=== PATIENT | male | born 2000 | race American Indian/Alaskan Native ===

== ENCOUNTER 2019-03-08 21:30 | Emergency (ER) | payer OTHER, SELFPAY ==
[2019-03-08 21:36] VITALS: BP 138/76; PULSE 70; RESP 13; TEMP 36.8; O2SAT 100
--- NOTE | 2019-03-08 21:39 | DI.RAD.S_ITS ---
PROCEDURE: XR CHEST 1V INDICATIONS: chest pain TECHNIQUE: One view of the chest was acquired. COMPARISON: None. FINDINGS: Surgical changes and devices: None. Lungs and pleura: Lungs are clear. No pleural effusions or pneumothorax. Mediastinum: Mediastinal contours appear normal. Heart size is normal. Bones and chest wall: No suspicious bony lesions. Overlying soft tissues appear unremarkable. IMPRESSION: No acute cardiopulmonary disease. Dictated by: Andrey Osborn M.D. on 03/08/2019 at 21:57 Approved by: Andrey Osborn M.D. on 03/08/2019 at 21:57
[2019-03-08 21:51] LABS: Add Manual Diff / Slide Review NO; Basophils Absolute Auto 100 /uL (0-100); Basophils Percent Auto 0.7 % (0-2); Eosinophils Absolute Auto 100 /uL (0-450); Eosinophils Percent Auto 1.9 % (2-4); Hematocrit 46.7 % (41-53); Hemoglobin 15.8 g/dL (13.5-17.5); Lymphocytes Absolute Auto 2500 /uL (1100-4500); Lymphocytes Percent Auto 33.3 % (25-40); Mean Corpuscular HGB Conc 33.8 % (30-36); Mean Corpuscular Hemoglobin 28.1 PG (26-34); Mean Corpuscular Volume 83.4 fL (80-100); Monocytes Absolute Auto 600 /uL (0-900); Monocytes Percent Auto 7.7 % (3-14); Neutrophils Absolute Auto 4300 /uL (1500-7000); Neutrophils Percent Auto 56.4 % (50-75); Platelet Count 202 X10^3/uL (150-400); Red Cell Distribution Width 13.4 % (11.6-14.8); White Blood Cell Count 7.6 X10^3/uL (4.5-11.0)
--- NOTE | 2019-03-08 21:51 | ED.CHESTPAIN ---
HPI - Chest Pain General Chief Complaint: Chest Pain Stated Complaint: N/V chest pain Time Seen by Provider: 03/08/19 21:32 Source: patient and EMS Mode of arrival: EMS Limitations: no limitations History of Present Illness HPI narrative: 18-year-old male smoker with history of anxiety presents by EMS for evaluation of sudden-onset nausea and vomiting closely followed by some epigastric pain. Patient relatively asymptomatic by his arrival. Not dizzy nor weak or lightheaded. He has no fever chills and denies abdominal pain. He denies exposure to ill persons, bad food or recent antibiotics complaint: chest pain Onset (ago): hour(s) Duration: now resolved Onset: after eating Pain location: epigastric Severity: mild Pain radiation: none Relieving factors: nothing Exacerbating factors: nothing Associated symptoms: nausea and vomiting Treatments prior to arrival chest pain: none Related Data Previous Rx's Medication Instructions Recorded ondansetron 4 mg PO TID-QID PRN #10 tab 03/08/19 Allergies Allergy/AdvReac Type Severity Reaction Status Date / Time No Known Allergies Allergy Uncoded 11/12/17 11:45 Review of Systems Constitutional Denies chills, Denies fever(s), Denies lethargy and Denies weakness Eyes Denies change in vision, Denies eye discharge, Denies irritation and Denies loss of vision ENT Ears, Nose, Mouth, and Throat: Denies change in voice, Denies neck pain and Denies sore throat Cardiovascular Reports chest pain, Denies irregular heart rhythm, Denies lightheadedness, Denies palpitations, Denies dyspnea, Denies dyspnea on exertion and Denies orthopnea Respiratory Denies cough, Denies dyspnea, Denies dyspnea on exertion and Denies wheezing Gastrointestinal Gastrointestinal: Denies abdominal pain, Denies change in bowel habits, Denies diarrhea, Reports nausea and Reports vomiting Genitourinary Denies hematuria, Denies flank pain, Denies urinary incontinence and Denies urinary urgency Musculoskeletal Denies neck pain Integumentary/Breasts Denies pruritus, Denies erythema, Denies rash and Denies wounds Neurologic Denies confusion, Denies loss of vision and Denies weakness Psychiatric Denies anxiety, Denies confusion, Denies depression, Denies homicidal ideation and Denies suicidal ideation Endocrine Denies palpitations Hematologic/Lymphatic Denies easy bruising Allergic/Immunologic Denies wheezing PFSH Social History Smoking Status: Current every day smoker Social History Smoking Status: Current every day smoker Exam Narrative Exam Narrative: GENERAL: This is a well-nourished, well-developed patient, in mild distress. HEAD: Atraumatic. Normocephalic. No temporal or scalp tenderness. EYES: Pupils equal round and reactive. Extraocular motions intact. No scleral icterus. No injection or drainage. ENT: Nose without bleeding, purulent drainage or septal hematoma. Throat without erythema, tonsillar hypertrophy or exudate. Uvula midline. Airway patent. NECK: Trachea midline. No JVD or lymphadenopathy. Supple, nontender, no meningeal signs. CARDIOVASCULAR: Regular rate and rhythm without murmurs, gallops, or rubs. RESPIRATORY: Clear to auscultation. Breath sounds equal bilaterally. No wheezes, rales, or rhonchi. GASTROINTESTINAL: Abdomen soft, non-tender, nondistended. No hepato-splenomegaly, or palpable masses. No guarding. EXTREMITIES: No clubbing, cyanosis, or edema. No joint tenderness, effusion, or edema noted. BACK: Nontender without deformity or crepitance. No flank tenderness. NEURO: AOx3. SKIN: No rash or erythema. Initial Vital Signs Initial Vital Signs: Vital Signs Temperature 98.3 F 03/08/19 21:36 Pulse Rate 70 03/08/19 21:36 Respiratory Rate 13 03/08/19 21:36 Blood Pressure 138/76 03/08/19 21:36 Pulse Oximetry 100 03/08/19 21:36 Scores HEART Score Heart Score history: Slightly Suspicious Heart Score EKG: Normal Heart Score Age: < 45 years old Heart Score risk factors: No known risk factors Heart Score troponin: < or = to normal limit Heart Score Total: 0 Course Orders Ordered: ED Orders 03/08/19 21:39 XR chest 1V Stat EKG-12 Lead Stat 03/08/19 21:45 Complete Blood Count AUTO DIFF Stat Comprehensive Metabolic Panel Stat Lipase Stat Troponin & CK Cardiac Panel Stat Discontinued Medications Sodium Chloride (Normal Saline 0.9%) 1,000 mls @ 150 mls/hr IV CONT FARZANA Last Infusion: 03/08/19 23:05 Dose: 0 mls/hr Admin: 03/08/19 22:17 Dose: 150 mls/hr Ondansetron HCl (Zofran) 4 mg IV NOW ONE Stop: 03/08/19 21:40 Last Admin: 03/08/19 22:17 Dose: 4 mg Ondansetron HCl (Zofran Odt Prepack) 1 bottle MISC SEEINSTR ONE Stop: 03/08/19 23:32 Last Admin: 03/08/19 23:45 Dose: 1 bottle Pantoprazole Sodium (Protonix) 40 mg IV NOW ONE Stop: 03/08/19 21:40 Last Admin: 03/08/19 22:16 Dose: 40 mg Vital Signs - 8 hr 03/08/19 23:00 03/08/19 23:47 Pulse Rate 63 63 Respiratory Rate 20 20 Blood Pressure 126/66 Blood Pressure [Left Arm] 126/66 Pulse Oximetry 100 100 MDM - Chest Pain Medical Records Data Attestation: I reviewed the patient's medical records. Lab Data Attestation: I reviewed the patient's lab results. Result diagrams: 03/08/19 21:45 03/08/19 21:45 Lab Results 03/08/19 03/08/19 Range/Units 21:45 21:45 WBC 7.6 (4.5-11.0) X10^3/uL RBC 5.60 (4.5-5.9) X10^6/uL Hgb 15.8 (13.5-17.5) g/dL Hct 46.7 (41-53) % MCV 83.4 (80-100) fL MCH 28.1 (26-34) PG MCHC 33.8 (30-36) % RDW 13.4 (11.6-14.8) % Plt Count 202 (150-400) X10^3/uL Neut % (Auto) 56.4 (50-75) % Lymph % (Auto) 33.3 (25-40) % [place] % (Auto) 7.7 (3-14) % Eos % (Auto) 1.9 L (2-4) % Baso % (Auto) 0.7 (0-2) % Neut # (Auto) 4300 (5200-4741) /uL Lymph # (Auto) 2500 (8149-0736) /uL [place] # (Auto) 600 (0-900) /uL Eos # (Auto) 100 (0-450) /uL Baso # (Auto) 100 (0-100) /uL Sodium 140 (137-145) mmol/L Potassium 3.9 (3.4-5.1) mmol/L Chloride 104 (98-107) mmol/L Carbon Dioxide 29 (22-32) mmol/L BUN 14 (9-20) mg/dL Creatinine 0.90 (0.66-1.25) mg/dL Estimated GFR > 60.0 (>60) mL/min BUN/Creatinine Ratio 15.6 (6-22) Glucose 86 (70-100) mg/dL Calcium 9.1 (8.4-10.2) mg/dL Total Bilirubin 0.6 (0.2-1.3) mg/dL AST 27 (17-59) IU/L ALT 27 (21-72) IU/L Alkaline Phosphatase 68 (38-126) U/L Total Creatine Kinase 227 H (55-170) U/L CK-MB (CK-2) 1.43 (<2.37) ng/mL CK-MB (CK-2) Rel Index 0.6 L (1.5-5.0) % Troponin I < 0.012 (0.01-0.034) ng/mL Total Protein 7.2 (6.3-8.2) g/dL Albumin 4.4 (3.5-5.0) g/dL Globulin 2.8 (1.7-4.1) g/dL Albumin/Globulin Ratio 1.6 (1.0-2.8) Lipase 61 (23-300) U/L Imaging Data Chest x-ray: Radiologist's impression: [address] [address] XRay Report Signed Patient: Wilfredo Horvath [facility]#: [id number] : 2000Acct:[id number] Age/Sex: 18 / MDate of Service: 03/08/19 Loc: ED Accession Number: [id number] Procedure: XR chest 1V Ordering Provider: Casey Mcgrath D.O. PROCEDURE: XR CHEST 1V INDICATIONS: chest pain TECHNIQUE: One view of the chest was acquired. COMPARISON: None. FINDINGS: Surgical changes and devices: None. Lungs and pleura: Lungs are clear. No pleural effusions or pneumothorax. Mediastinum: Mediastinal contours appear normal. Heart size is normal. Bones and chest wall: No suspicious bony lesions. Overlying soft tissues appear unremarkable. IMPRESSION: No acute cardiopulmonary disease. Dictated by: Andrey Osborn M.D. on 03/08/2019 at 21:57 Approved by: Andrey Osborn M.D. on 03/08/2019 at 21:57 [facility] Narrative Medical decision making narrative: Multiple etiologies for patient's symptoms considered including: [esophageal spasm vs. cardiac ischemia vs. ] Patient's symptoms improved or duration of stay with above-stated therapies. Findings and discharge diagnosis discussed with patient/family followed by verbalization of understanding Return precautions discussed with patient/family whom verbalize understanding. Discharge Plan Departure Patient Disposition: Home Clinical Impression: Atypical chest pain Vomiting Qualifiers: Vomiting type: unspecified Vomiting Intractability: non-intractable Nausea presence: with nausea Qualified Code(s): R11.2 - Nausea with vomiting, unspecified Discharge Date/Time: 03/08/19 23:46 Interventions: ED Discharge Assessment Last Done: 03/08/19 23:47 Instructions: DI for Atypical Chest Pain Activity Restrictions/Additional Instructions: *You have been diagnosed nausea and vomiting with atypical chest pain and anxiety *What to do: *Take medications as directed *Follow up with your primary care provider in 2-3 days, call for an appointment. Let them know you were seen in the Emergency Department and that we ask that you be seen in follow up *Return to ER if you should have any new, worsening or concerning symptoms Prescriptions: New ondansetron 4 mg tablet,disintegrating 4 mg PO TID-QID PRN (Reason: nausea and vomiting) Qty: 10 RF: 0
[2019-03-08 21:55] VITALS: BP 138/76; PULSE 60; RESP 24; O2SAT 100
[2019-03-08 22:02] LABS: Alanine Aminotransferase 27 IU/L (21-72); Albumin 4.4 g/dL (3.5-5.0); Albumin Globulin Ratio 1.6 (1.0-2.8); Alkaline Phosphatase 68 U/L (38-126); Aspartate Aminotransferase 27 IU/L (17-59); BUN Creatinine Ratio 15.6 (6-22); Bilirubin Total 0.6 mg/dL (0.2-1.3); Blood Urea Nitrogen 14 mg/dL (9-20); Calcium 9.1 mg/dL (8.4-10.2); Carbon Dioxide 29 mmol/L (22-32); Chloride 104 mmol/L (98-107); Creatine Kinase 227 U/L (55-170); Estimated Glomerular Filt Rate > 60.0 mL/min (>60); Globulin 2.8 g/dL (1.7-4.1); Glucose 86 mg/dL (70-100); HEMOLYSIS 18 (0-50); Lipase 61 U/L (23-300); Potassium 3.9 mmol/L (3.4-5.1); Sodium 140 mmol/L (137-145); Total Protein 7.2 g/dL (6.3-8.2)
[2019-03-08 22:03] VITALS: BP 128/62; PULSE 63; RESP 23; O2SAT 100
[2019-03-08 22:14] LABS: Troponin I < 0.012 ng/mL (0.01-0.034)
[2019-03-08] MEDS: PANTOPRAZOLE 40 MG VIAL IV (22:16)
[2019-03-08] MEDS: SODIUM CHLORIDE 0.9% 1,000 ML 150 ML IV (22:17)
[2019-03-08] MEDS: ONDANSETRON 4 MG/2 ML INJ IV (22:17)
[2019-03-08 22:18] LABS: CKMB % Relative Index 0.6 % (1.5-5.0); Creatine Kinase MB 1.43 ng/mL (<2.37)
[2019-03-08 23:00] VITALS: BP 126/66; PULSE 63; RESP 20; O2SAT 100
[2019-03-08] MEDS: ONDANSETRON 4 MG ODT PREPACK 1 BOTTLE MISC (23:45)
[2019-03-08 23:47] VITALS: BP 126/66; PULSE 63; RESP 20; O2SAT 100
--- NOTE | 2019-03-09 06:17 | ED_ITS ---
HPI - Chest Pain General Chief Complaint: Chest Pain Stated Complaint: N/V chest pain Time Seen by Provider: 03/08/19 21:32 Source: patient and EMS Mode of arrival: EMS Limitations: no limitations History of Present Illness HPI narrative: 18-year-old male smoker with history of anxiety presents by EMS for evaluation of sudden-onset nausea and vomiting closely followed by some epigastric pain. Patient relatively asymptomatic by his arrival. Not dizzy nor weak or lightheaded. He has no fever chills and denies abdominal pain. He denies exposure to ill persons, bad food or recent antibiotics complaint: chest pain Onset (ago): hour(s) Duration: now resolved Onset: after eating Pain location: epigastric Severity: mild Pain radiation: none Relieving factors: nothing Exacerbating factors: nothing Associated symptoms: nausea and vomiting Treatments prior to arrival chest pain: none Related Data Previous Rx's Medication Instructions Recorded ondansetron 4 mg PO TID-QID PRN #10 tab 03/08/19 Allergies Allergy/AdvReac Type Severity Reaction Status Date / Time No Known Allergies Allergy Uncoded 11/12/17 11:45 Review of Systems Constitutional Denies chills, Denies fever(s), Denies lethargy and Denies weakness Eyes Denies change in vision, Denies eye discharge, Denies irritation and Denies loss of vision ENT Ears, Nose, Mouth, and Throat: Denies change in voice, Denies neck pain and Denies sore throat Cardiovascular Reports chest pain, Denies irregular heart rhythm, Denies lightheadedness, Denies palpitations, Denies dyspnea, Denies dyspnea on exertion and Denies orthopnea Respiratory Denies cough, Denies dyspnea, Denies dyspnea on exertion and Denies wheezing Gastrointestinal Gastrointestinal: Denies abdominal pain, Denies change in bowel habits, Denies diarrhea, Reports nausea and Reports vomiting Genitourinary Denies hematuria, Denies flank pain, Denies urinary incontinence and Denies urinary urgency Musculoskeletal Denies neck pain Integumentary/Breasts Denies pruritus, Denies erythema, Denies rash and Denies wounds Neurologic Denies confusion, Denies loss of vision and Denies weakness Psychiatric Denies anxiety, Denies confusion, Denies depression, Denies homicidal ideation and Denies suicidal ideation Endocrine Denies palpitations Hematologic/Lymphatic Denies easy bruising Allergic/Immunologic Denies wheezing PFSH Social History Smoking Status: Current every day smoker Social History Smoking Status: Current every day smoker Exam Narrative Exam Narrative: GENERAL: This is a well-nourished, well-developed patient, in mild distress. HEAD: Atraumatic. Normocephalic. No temporal or scalp tenderness. EYES: Pupils equal round and reactive. Extraocular motions intact. No scleral icterus. No injection or drainage. ENT: Nose without bleeding, purulent drainage or septal hematoma. Throat without erythema, tonsillar hypertrophy or exudate. Uvula midline. Airway patent. NECK: Trachea midline. No JVD or lymphadenopathy. Supple, nontender, no meningeal signs. CARDIOVASCULAR: Regular rate and rhythm without murmurs, gallops, or rubs. RESPIRATORY: Clear to auscultation. Breath sounds equal bilaterally. No wheezes, rales, or rhonchi. GASTROINTESTINAL: Abdomen soft, non-tender, nondistended. No hepato- splenomegaly, or palpable masses. No guarding. EXTREMITIES: No clubbing, cyanosis, or edema. No joint tenderness, effusion, or edema noted. BACK: Nontender without deformity or crepitance. No flank tenderness. NEURO: AOx3. SKIN: No rash or erythema. Initial Vital Signs Initial Vital Signs: Vital Signs Temperature 98.3 F 03/08/19 21:36 Pulse Rate 70 03/08/19 21:36 Respiratory Rate 13 03/08/19 21:36 Blood Pressure 138/76 03/08/19 21:36 Pulse Oximetry 100 03/08/19 21:36 Scores HEART Score Heart Score history: Slightly Suspicious Heart Score EKG: Normal Heart Score Age: < 45 years old Heart Score risk factors: No known risk factors Heart Score troponin: < or = to normal limit Heart Score Total: 0 Course Orders Ordered: ED Orders 03/08/19 21:39 XR chest 1V Stat EKG-12 Lead Stat 03/08/19 21:45 Complete Blood Count AUTO DIFF Stat Comprehensive Metabolic Panel Stat Lipase Stat Troponin & CK Cardiac Panel Stat Discontinued Medications Sodium Chloride (Normal Saline 0.9%) 1,000 mls @ 150 mls/hr IV CONT FARZANA Last Infusion: 03/08/19 23:05 Dose: 0 mls/hr Admin: 03/08/19 22:17 Dose: 150 mls/hr Ondansetron HCl (Zofran) 4 mg IV NOW ONE Stop: 03/08/19 21:40 Last Admin: 03/08/19 22:17 Dose: 4 mg Ondansetron HCl (Zofran Odt Prepack) 1 bottle MISC SEEINSTR ONE Stop: 03/08/19 23:32 Last Admin: 03/08/19 23:45 Dose: 1 bottle Pantoprazole Sodium (Protonix) 40 mg IV NOW ONE Stop: 03/08/19 21:40 Last Admin: 03/08/19 22:16 Dose: 40 mg Vital Signs - 8 hr 03/08/19 23:00 03/08/19 23:47 Pulse Rate 63 63 Respiratory Rate 20 20 Blood Pressure 126/66 Blood Pressure [Left Arm] 126/66 Pulse Oximetry 100 100 MDM - Chest Pain Medical Records Data Attestation: I reviewed the patient's medical records. Lab Data Attestation: I reviewed the patient's lab results. Result diagrams: 03/08/19 21:45 03/08/19 21:45 Lab Results 03/08/19 03/08/19 Range/Units 21:45 21:45 WBC 7.6 (4.5-11.0) X10^3/uL RBC 5.60 (4.5-5.9) X10^6/uL Hgb 15.8 (13.5-17.5) g/dL Hct 46.7 (41-53) % MCV 83.4 (80-100) fL MCH 28.1 (26-34) PG MCHC 33.8 (30-36) % RDW 13.4 (11.6-14.8) % Plt Count 202 (150-400) X10^3/uL Neut % (Auto) 56.4 (50-75) % Lymph % (Auto) 33.3 (25-40) % [place] % (Auto) 7.7 (3-14) % Eos % (Auto) 1.9 L (2-4) % Baso % (Auto) 0.7 (0-2) % Neut # (Auto) 4300 (8664-0712) /uL Lymph # (Auto) 2500 (9547-6643) /uL [place] # (Auto) 600 (0-900) /uL Eos # (Auto) 100 (0-450) /uL Baso # (Auto) 100 (0-100) /uL Sodium 140 (137-145) mmol/L Potassium 3.9 (3.4-5.1) mmol/L Chloride 104 (98-107) mmol/L Carbon Dioxide 29 (22-32) mmol/L BUN 14 (9-20) mg/dL Creatinine 0.90 (0.66-1.25) mg/dL Estimated GFR > 60.0 (>60) mL/min BUN/Creatinine Ratio 15.6 (6-22) Glucose 86 (70-100) mg/dL Calcium 9.1 (8.4-10.2) mg/dL Total Bilirubin 0.6 (0.2-1.3) mg/dL AST 27 (17-59) IU/L ALT 27 (21-72) IU/L Alkaline Phosphatase 68 (38-126) U/L Total Creatine Kinase 227 H (55-170) U/L CK-MB (CK-2) 1.43 (<2.37) ng/mL CK-MB (CK-2) Rel Index 0.6 L (1.5-5.0) % Troponin I < 0.012 (0.01-0.034) ng/mL Total Protein 7.2 (6.3-8.2) g/dL Albumin 4.4 (3.5-5.0) g/dL Globulin 2.8 (1.7-4.1) g/dL Albumin/Globulin Ratio 1.6 (1.0-2.8) Lipase 61 (23-300) U/L Imaging Data Chest x-ray: Radiologist's impression: [address] [address] XRay Report Signed Patient: Wilfredo Horvath [facility]#: [id number] : 2000Acct:[id number] Age/Sex: 18 / MDate of Service: 03/08/19 Loc: ED Accession Number: [id number] Procedure: XR chest 1V Ordering Provider: Casey Mcgrath D.O. PROCEDURE: XR CHEST 1V INDICATIONS: chest pain TECHNIQUE: One view of the chest was acquired. COMPARISON: None. FINDINGS: Surgical changes and devices: None. Lungs and pleura: Lungs are clear. No pleural effusions or pneumothorax. Mediastinum: Mediastinal contours appear normal. Heart size is normal. Bones and chest wall: No suspicious bony lesions. Overlying soft tissues appear unremarkable. IMPRESSION: No acute cardiopulmonary disease. Dictated by: Andrey Osborn M.D. on 03/08/2019 at 21:57 Approved by: Andrey Osborn M.D. on 03/08/2019 at 21:57 [facility] Narrative Medical decision making narrative: Multiple etiologies for patient's symptoms considered including: [esophageal spasm vs. cardiac ischemia vs. ] Patient's symptoms improved or duration of stay with above-stated therapies. Findings and discharge diagnosis discussed with patient/family followed by verbalization of understanding Return precautions discussed with patient/family whom verbalize understanding. Discharge Plan Departure Patient Disposition: Home Clinical Impression: Atypical chest pain Vomiting Qualifiers: Vomiting type: unspecified Vomiting Intractability: non-intractable Nausea presence: with nausea Qualified Code(s): R11.2 - Nausea with vomiting, unspecified Discharge Date/Time: 03/08/19 23:46 Interventions: ED Discharge Assessment Last Done: 03/08/19 23:47 Instructions: DI for Atypical Chest Pain Activity Restrictions/Additional Instructions: *You have been diagnosed nausea and vomiting with atypical chest pain and anxiety *What to do: *Take medications as directed *Follow up with your primary care provider in 2-3 days, call for an appointment. Let them know you were seen in the Emergency Department and that we ask that you be seen in follow up *Return to ER if you should have any new, worsening or concerning symptoms Prescriptions: New ondansetron 4 mg tablet,disintegrating 4 mg PO TID-QID PRN (Reason: nausea and vomiting) Qty: 10 RF: 0
== END 2019-03-08 23:46 | disposition home or self-care (01) ==
PROVIDERS: Emergency Provider Emergency Medicine
DX: R07.89 Other chest pain (principal); R11.2 Nausea with vomiting, unspecified
CPT/HCPCS: 36591; 71045; 80053; 82550; 82553; 83690; 84484; 85025; 93005; 96361; 96374; 96375; 99283; 99285; C9113; J2405